=== PATIENT | female | born 1995 | race Two or more races ===

== ENCOUNTER → 2017-02-01 | Outpatient (CLI) | payer BC, OTHER ==
[2017-02-01 17:49] LABS: FREE T4 0.76 NG/DL (0.76-1.46)
[2017-02-01 19:20] LABS: PROLACTIN 5.2 NG/ML
== END ==
LOC: M LRY 14:32
PROVIDERS: ATTEND Nurse Practitioner Women's Health
DX: N92.6 Irregular menstruation, unspecified (principal)